=== PATIENT | female | born 1955 ===

== ENCOUNTER 2022-08-30 08:09 | Day surgery (SDC) | payer MEDICARE, OTHER ==
[~2022-08-30] VITALS: Ht 157.5 cm; Wt 97.0 kg
[~2022-08-30 08:09] MED LIST: (None)64.8 MG; ASPI81CH; CALCAVITD; GABA100; Lamictal150 MG; MONT10T; Micro-K10 MEQ; OMEP20ER; PHENY100ER; RALO60; TRAN4; ZARONTIN250 MG
[2022-08-30] MEDS ORDERED: PHENY100ER (08:38)
[2022-08-30] MEDS ORDERED: PHENY50CH (08:38)
[2022-08-30] MEDS ORDERED: LAMO25 (08:39)
[2022-08-30] MEDS ORDERED: LAMO100 (08:39)
[2022-08-30] MEDS ORDERED: PHENO60 (08:39)
[2022-08-30] MEDS ORDERED: ETHO250 (08:39)
[2022-08-30] MEDS ORDERED: CARV3.125 (08:40)
[2022-08-30] MEDS ORDERED: RALOXIFENE HCL (08:40)
[2022-08-30] MEDS ORDERED: TRAN2 (08:40)
[2022-08-30] MEDS ORDERED: MONT10T (08:40)
[2022-08-30] MEDS ORDERED: CLIMARA1 EACH (08:41)
[2022-08-30] MEDS ORDERED: OMEP20ER (08:41)
[2022-08-30] MEDS ORDERED: POTA10T (08:41)
[2022-08-30] MEDS ORDERED: SODBIC650 (08:41)
== END 2022-08-30 10:23 | disposition home or self-care (01) ==
LOC: ORSCSDS 08:09
PROVIDERS: Internal Medicine Gastroenterology
PROC: 0DJD8ZZ Inspection of Lower Intestinal Tract, Via Natural or Artificial Opening Endoscopic (ICD-10-PCS; principal; 2022-08-30 09:45)
DX: K52.9 Noninfective gastroenteritis and colitis, unspecified (principal); K59.00 Constipation, unspecified; E66.9 Obesity, unspecified
CPT/HCPCS: J2704; J7120